=== PATIENT | male | born 1960 | race Two or more races ===

== ENCOUNTER 2019-06-07 20:00 | Inpatient (IN) | payer MEDICAID ==
[~2019-06-07] VITALS: Ht 180.3 cm; Wt 116.1 kg
[2019-06-07 00:30] VITALS: BP 153/71
--- NOTE | 2019-06-07 20:57 | NUR ---
Dr. Rob at bedside for MSE.
[2019-06-07] MEDS ORDERED: ONDANSETRON 4 MG/2 ML VIAL IV ONE (21:00)
[2019-06-07] MEDS ORDERED: MAG HYDROX/AL HYDROX/SIMETH 30 ML LIQUID UDC PO ONE (21:00)
[2019-06-07] MEDS ORDERED: LIDOCAINE VISCUS 2% 15 ML UDC MM ONE (21:00)
[2019-06-07] MEDS ORDERED: PANTOPRAZOLE SODIUM 40 MG VIAL IV ONE (21:00)
[2019-06-07] MEDS ORDERED: DICYCLOMINE HCL LIQ 10 MG/5 ML UDC PO ONE (21:00)
[2019-06-07] MEDS ORDERED: HYDROMORPHONE 1 MG/1 ML DISP.SYRIN IV ONE ×2 (21:00→22:45)
[2019-06-07] MEDS ORDERED: HYDROMORPHONE 1 MG/1 ML DISP.SYRIN ONE ×2 (21:07→22:43)
[2019-06-07] MEDS ORDERED: DICYCLOMINE HCL LIQ 10 MG/5 ML UDC ONE (21:07)
[2019-06-07] MEDS ORDERED: PANTOPRAZOLE SODIUM 40 MG VIAL ONE (21:07)
[2019-06-07] MEDS ORDERED: ONDANSETRON 4 MG/2 ML VIAL ONE (21:07)
[2019-06-07] MEDS ORDERED: MAG HYDROX/AL HYDROX/SIMETH 30 ML LIQUID UDC ONE (21:08)
[2019-06-07] MEDS ORDERED: LIDOCAINE VISCUS 2% 15 ML UDC ONE (21:08)
[2019-06-07] MEDS ORDERED: IV NORMAL SALINE 250 ML IV ONE (21:12)
[2019-06-07] MEDS ORDERED: SWABABLE VALVE TRANSFER SET EA MC ONE (21:12)
[2019-06-07] MEDS ORDERED: IOHEXOL 350 100 ML INFUS..BTL ONE (21:12)
[2019-06-07 21:16] LABS: BASOPHILS % (AUTO) 0.2 % (0.0-2.0); EOSINOPHILS # (AUTO) 0.2 K/uL (0.0-0.7); EOSINOPHILS % (AUTO) 1.2 % (0.0-7.0); HEMATOCRIT 43.1 % (36.7-47.1); HEMOGLOBIN 14.5 g/dL (12.5-16.3); LYMPHOCYTES # (AUTO) 2.5 K/uL (20.0-40.0); LYMPHOCYTES % (AUTO) 18.3 % (20.5-51.5); MEAN CORPUSCULAR HEMOGLOBIN 29.1 uug (23.8-33.4); MEAN CORPUSCULAR HGB CONC 34 g/dL (32.5-36.3); MEAN CORPUSCULAR VOLUME 86.6 fL (73.0-96.2); MONOCYTES % (AUTO) 7.4 % (0.0-11.0); NEUTROPHILS # (AUTO) 9.8 K/uL (1.8-8.9); NEUTROPHILS % (AUTO) 72.9 % (38.5-71.5); PLATELET COUNT (AUTO) 185 K/uL (152-348); RED BLOOD CELL COUNT(AUTO) 4.97 MIL/uL (4.06-5.63); WHITE BLOOD COUNT (AUTO) 13.5 K/uL (3.6-10.2)
--- NOTE | 2019-06-07 21:18 | NUR ---
Xray at bedside.
[2019-06-07 21:25] LABS: CARBON DIOXIDE 27 mmol/L (21-32); CHLORIDE 101 mmol/L (98-107); CREATININE 0.6 mg/dL (0.6-1.3); GLUCOSE 105 mg/dL (74-106); POTASSIUM 3.7 mmol/L (3.5-5.1); UREA NITROGEN, BLOOD 13 mg/dL (7-18)
--- NOTE | 2019-06-07 21:29 | NUR ---
Ultrasound at bedside.
[2019-06-07 21:31] LABS: ALANINE AMINOTRANSFERASE 23 U/L (16-63); ALKALINE PHOSPHATASE 60 U/L (50-136); ASPARTATE AMINOTRANSFERASE 21 U/L (15-37); BILIRUBIN,DIRECT < 0.1 mg/dL (0.0-0.2); BILIRUBIN,TOTAL 0.3 mg/dL (0.2-1.0); LIPASE 568 U/L (73-393); TOTAL PROTEIN, SERUM 7.6 g/dL (6.4-8.2)
--- NOTE | 2019-06-07 21:55 | NUR ---
PT out of ER for CT.
--- NOTE | 2019-06-07 22:10 | NUR ---
Pt back to ER from CT.
--- NOTE | 2019-06-08 00:51 | NUR ---
Called [facility] to page Dr. Galindo.
--- NOTE | 2019-06-08 00:55 | NUR ---
Dr. Rob on panel call with Dr. Galindo. Patient accepted for admission to [facility], diagnosis: Pancreatitis.
[2019-06-08] MEDS ORDERED: IV D5 1/2 NS 1000 ML 1,000 ML IV PRN (00:56)
[2019-06-08] MEDS ORDERED: HYDROMORPHONE 1 MG/1 ML DISP.SYRIN IV PRN (01:00)
[2019-06-08] MEDS ORDERED: HYDROCODONE/APAP 5-325MG TABLET PO PRN (01:00)
[2019-06-08] MEDS ORDERED: ACETAMINOPHEN 325 MG TABLET PO PRN (01:00)
[2019-06-08] MEDS ORDERED: MAGNESIUM HYDROXIDE 30 ML LIQUID UDC PO PRN (01:00)
[2019-06-08] MEDS ORDERED: ONDANSETRON 4 MG/2 ML VIAL IV PRN (01:00)
[2019-06-08] MEDS ORDERED: Z GUARD REMEDY PASTE 57 GM TUBE TOP PRN (01:00)
[2019-06-08] MEDS ORDERED: HYDROMORPHONE 1 MG/1 ML DISP.SYRIN IV ONE (01:15)
--- NOTE | 2019-06-08 01:20 | NUR ---
Report given to Naren MACARIO [facility].
[2019-06-08 02:17] LABS: *BILIRUBIN,URIN NEGATIVE (NEGATIVE); *BLOOD, URINE NEGATIVE (NEGATIVE); *CLARITY,URINE CLEAR (CLEAR); *COLOR,URINE YELLOW (YELLOW); *KETONES,URINE NEGATIVE (NEGATIVE); *UROBILINOGEN,URINE 0.2 E.U./dl (NORMAL); LEUKOCYTE ESTERASE ,URINE NEGATIVE (NEGATIVE); NITRITE, URINE NEGATIVE (NEGATIVE); UGLUCOSE NEGATIVE (NEGATIVE)
[2019-06-08 04:15] LABS: BACTERIA,URINE NONE SEEN /HPF (NONE SEEN); RBC,URINE 0-3 /HPF (0-3); SQUAMOUS EPITHELIAL CELL,UR FEW /HPF (NONE SEEN); WBC,URINE 0-3 /HPF (0-3)
[2019-06-08 05:52] VITALS: BP 141/76
--- NOTE | 2019-06-08 08:36 | NUR ---
Received pt. resting in bed alert oriented x4. pt. speaks frisian and a little greek. pt. is able to make needs known. pt. denies pain/ discomfort. Pt. denies SOB / difficulty breathing. Pt. has 2 IV sites. L AC 20 gauge intact patent running prescribed fluid. R AC 20 gauge intact patent saline lock. Safety measures in place. call light within reach. will continue to monitor pt.
[2019-06-08] MEDS ORDERED: PANTOPRAZOLE SODIUM 40 MG VIAL IV SCH (09:00)
--- NOTE | 2019-06-08 11:20 | NUR ---
daughter has called nursing desk multiple times explaining she is upset a doctor has not seen her father yet and pt. wants to leave AMA. Called Dr. Greenberg. He is now at the nursing desk and will see the pt. shortly. Updated pt. that doctor will be in his room soon. Ordered to put in soft diet to see how he tolerates it.
[2019-06-08 11:39] VITALS: BP 157/77
--- NOTE | 2019-06-08 14:58 | NUR ---
Pt. ate lunch soft diet and tolerated it well. pt. denies pain/ discomfort. Pt. wants to go home. Called for discharge orders. Awaiting to call back and put discharge orders in.
--- NOTE | 2019-06-08 15:00 | NUR ---
Pt. discharged home. IV removed. ID band removed. all discharge paperwork signed. all belongings with pt. pt. walked down by dunia leaving in private car with daughter
[2019-06-08 15:27] VITALS: BP 155/75
== END 2019-06-08 16:05 | disposition home or self-care (01) | DRG 282 ==
LOC: ER 20:02 → MEDSURG3 06-08 01:30
PROVIDERS: ADMIT Student in an Organized Health Care Education/Training Program
DX: K85.90 Acute pancreatitis without necrosis or infection, unspecified (principal); K76.0 Fatty (change of) liver, not elsewhere classified; E03.9 Hypothyroidism, unspecified; E66.9 Obesity, unspecified; E78.5 Hyperlipidemia, unspecified; Z79.890 Hormone replacement therapy; Z79.899 Other long term (current) drug therapy; M10.9 Gout, unspecified; I70.0 Atherosclerosis of aorta; F17.210 Nicotine dependence, cigarettes, uncomplicated
CPT/HCPCS: 36415; 70030-TC; 71045; 83690; 85025; 85730; 93005; A4663; C9113; G0378; J1170; J2405; J3490; J7050; Q9967